=== PATIENT | male | born 1985 | race Caucasian/White ===

== ENCOUNTER 2020-07-24 10:17 | Inpatient (IN) ==
[2020-07-24] MEDS ORDERED: NS 0.9% 1000 ml BAG 1,000 ML IV ONE (10:32)
[2020-07-24 11:04] LABS: ABS Basophils 0.1 10^3/ul (0-0.2); ABS Lymphocytes 2.2 10^3/ul (1.0-4.8); ABS Monocytes 0.9 10^3/ul (0-0.8); Eosinophil % 0.2 %; Hematocrit 41 % (42-52); Lymphocyte % 16.8 %; Mean Corpuscular HGB Conc 34 g/dL (31-36); Mean Corpuscular Hemoglobin 29 pg (27-31); Mean Corpuscular Volume 85 fL (80-94); Mean Platelet Volume 7.9 fL (7.4-10.4); Platelet Count 275 10^3/uL (150-450); Red Blood Count 4.82 10^6 /uL (4.18-5.48); Red Cell Distribution Width 13 % (10-15); White Blood Count 13.2 10^3/uL (3.5-10.8)
[2020-07-24 11:27] LABS: Albumin 4.4 g/dL (3.2-5.2); Albumin/Globulin Ratio 1.4 (1-3); C Reactive Protein 121.62 mg/L (<8.01); Calcium 9.4 mg/dL (8.6-10.3); EGFR African American 121.1 (>60); EGFR Non-African American 100.1 (>60); Globulin 3.2 g/dL (2-4); Potassium 3.8 mmol/L (3.5-5.0); Total Bilirubin 0.8 mg/dL (0.2-1.0); Total Protein 7.6 g/dL (6.4-8.9)
[2020-07-24] MEDS ORDERED: cefTRIAXone 2 GM ADDV.VIAL 2 GM in NS 0.9% 100 ml BAG 100 ML IVPB ONE (11:43)
[2020-07-24] MEDS ORDERED: Vancomycin 1,500 MG in NS 0.9% 250 ml 250 ML IVPB ONE (12:00)
[2020-07-24] MEDS ORDERED: Vancomycin 1,000 MG VIAL IVPB SCH (12:00)
[2020-07-24] MEDS ORDERED: Tetan/Diph/Pertus SYR(Tdap) 0.5 ML SYR(BOOSTRIX) use SYR contains LATEX IM ONE (13:14)
[2020-07-24] MEDS ORDERED: Morphine 2 MG/ML SYRINGE IV PRN (13:20)
[2020-07-24] MEDS ORDERED: diPHENhydraMINE 25 mg TAB PO PRN (13:20)
[2020-07-24] MEDS ORDERED: Lactulose 30 ml UDC PO PRN (13:20)
[2020-07-24] MEDS ORDERED: Ondansetron ODT 4 mg TAB 4 MG TAB PO PRN (13:20)
[2020-07-24] MEDS ORDERED: diPHENhydraMINE IV 50 MG/ML 1 ml VIAL (BENADRYL) IV PRN (13:20)
[2020-07-24] MEDS ORDERED: Magnesium Hydroxide LIQ 30 ML UDC PO PRN (13:20)
[2020-07-24] MEDS ORDERED: Ondansetron 4 mg VIAL 2 MG/ML 2 ml VIAL IV PRN (13:20)
[2020-07-24] MEDS ORDERED: Gadoteridol (CONTRAST) 279.3 MG/ML 10 ML IV ONE (15:33)
[2020-07-24] MEDS ORDERED: Lidocaine 2% PF 5 ML VIAL ONE (18:00)
[2020-07-24] MEDS ORDERED: Propofol 10 MG/ML 20 ML BTL ONE ×2 (18:00→19:46)
[2020-07-24] MEDS ORDERED: Bupivacaine 0.5% SDV PF 30ML VIAL ONE (18:00)
[2020-07-24] MEDS ORDERED: Midazolam 5 mg/5 ml VIAL 1 mg/ml 5 ml VIAL (5 mg) ONE (18:00)
[2020-07-24] MEDS ORDERED: Lidocaine 1% MPF 5 ML VIAL ONE (18:06)
[2020-07-24] MEDS ORDERED: Clindamycin 900 MG/D5W BAG 900 MG/50 ML BAG IVPB ONE (18:09)
[2020-07-24] MEDS ORDERED: Dexamethasone IV 4 MG/ML VIAL 1 ml VIAL ONE (18:20)
[2020-07-24] MEDS ORDERED: fentaNYL 100 mcg/2 ml 50 MCG/ML VIAL ONE (18:55)
[2020-07-24] MEDS ORDERED: HYDROmorphone 1 MG/1 ML SYRINGE ONE (19:08)
[2020-07-24] MEDS ORDERED: HYDROmorphone 1 MG/1 ML SYRINGE IV PRN (19:40)
[2020-07-24] MEDS ORDERED: DiMENhydriNATE IV 50 mg/ml 1 ml VIAL IV PUSH PRN (19:40)
[2020-07-24] MEDS ORDERED: Naloxone 0.4 mg VIAL 0.4 mg/ml 1 ml VIAL IV PRN (19:40)
[2020-07-24] MEDS ORDERED: Ondansetron 4 mg VIAL 2 MG/ML 2 ml VIAL ONE (19:41)
[2020-07-24] MEDS: Magnesium Hydroxide LIQ 30 ML UDC PO SCH (23:20)
[2020-07-24] MEDS: Lactated Ringers 1000 ml BAG 1,000 ML IV SCH (23:26)
[2020-07-25 05:43] LABS: ABS Monocytes 0.4 10^3/ul (0-0.8); ABS Neutrophils 8.4 10^3/ul (1.5-7.7); Hematocrit 36 % (42-52); Hemoglobin 12.6 g/dL (14.0-18.0); Lymphocyte % 10.2 %; Mean Corpuscular HGB Conc 35 g/dL (31-36); Mean Corpuscular Hemoglobin 30 pg (27-31); Mean Corpuscular Volume 85 fL (80-94); Mean Platelet Volume 7.7 fL (7.4-10.4); Platelet Count 252 10^3/uL (150-450); Red Blood Count 4.27 10^6 /uL (4.18-5.48); Red Cell Distribution Width 13 % (10-15); White Blood Count 9.8 10^3/uL (3.5-10.8)
[2020-07-25 05:57] LABS: C Reactive Protein 154.48 mg/L (<8.01); Calcium 8.9 mg/dL (8.6-10.3); EGFR African American 164.3 (>60); EGFR Non-African American 135.8 (>60); Potassium 4.4 mmol/L (3.5-5.0)
[2020-07-25 07:09] LABS: Erythrocyte Sed Rate 73 mm/Hr (0-14)
[2020-07-25] MEDS: Magnesium Hydroxide LIQ 30 ML UDC PO SCH ×2 (07:51→20:55)
[2020-07-25] MEDS: Vitamin THERAPEUTIC TAB PO SCH (07:52)
[2020-07-25] MEDS: Heparin 5000 UNITS/ML 1 mL VIAL SUBCUT SCH ×2 (07:54→17:03)
[2020-07-25] MEDS: cefTRIAXone 2 GM ADDV.VIAL 2 GM in NS 0.9% 100 ml BAG 100 ML IV SCH (07:55)
[2020-07-25] MEDS: metroNIDAZOLE IV 500 MG/100ML 500 MG/100 ML BAG IVPB SCH ×2 (09:36→20:55)
[2020-07-25] MEDS: Lactated Ringers 1000 ml BAG 1,000 ML IV SCH ×2 (09:36→20:54)
[2020-07-26] MEDS: Heparin 5000 UNITS/ML 1 mL VIAL SUBCUT SCH ×4 (00:08→23:31)
[2020-07-26 06:12] LABS: ABS Basophils 0.1 10^3/ul (0-0.2); ABS Eosinophils 0.1 10^3/ul (0-0.6); ABS Lymphocytes 3.5 10^3/ul (1.0-4.8); ABS Monocytes 0.6 10^3/ul (0-0.8); ABS Neutrophils 8.6 10^3/ul (1.5-7.7); Eosinophil % 0.6 %; Hematocrit 40 % (42-52); Hemoglobin 13.5 g/dL (14.0-18.0); Lymphocyte % 26.9 %; Mean Corpuscular HGB Conc 34 g/dL (31-36); Mean Corpuscular Hemoglobin 29 pg (27-31); Mean Corpuscular Volume 86 fL (80-94); Mean Platelet Volume 7.9 fL (7.4-10.4); Platelet Count 329 10^3/uL (150-450); Red Blood Count 4.68 10^6 /uL (4.18-5.48); Red Cell Distribution Width 14 % (10-15); White Blood Count 12.9 10^3/uL (3.5-10.8)
[2020-07-26 06:39] LABS: C Reactive Protein 114.6 mg/L (<8.01); EGFR African American 135.5 (>60); Potassium 4.2 mmol/L (3.5-5.0)
[2020-07-26 07:30] LABS: Erythrocyte Sed Rate 64 mm/Hr (0-14)
[2020-07-26] MEDS: Magnesium Hydroxide LIQ 30 ML UDC PO SCH ×2 (07:46→20:53)
[2020-07-26] MEDS: cefTRIAXone 2 GM ADDV.VIAL 2 GM in NS 0.9% 100 ml BAG 100 ML IV SCH (08:31)
[2020-07-26] MEDS: Vitamin THERAPEUTIC TAB PO SCH (08:31)
[2020-07-26] MEDS: metroNIDAZOLE IV 500 MG/100ML 500 MG/100 ML BAG IVPB SCH ×2 (09:10→20:53)
[2020-07-27 05:37] LABS: ABS Eosinophils 0.2 10^3/ul (0-0.6); ABS Lymphocytes 2.6 10^3/ul (1.0-4.8); ABS Monocytes 0.5 10^3/ul (0-0.8); ABS Neutrophils 3.4 10^3/ul (1.5-7.7); Hematocrit 38 % (42-52); Hemoglobin 12.7 g/dL (14.0-18.0); Lymphocyte % 38.4 %; Mean Corpuscular HGB Conc 34 g/dL (31-36); Mean Corpuscular Hemoglobin 29 pg (27-31); Mean Corpuscular Volume 87 fL (80-94); Mean Platelet Volume 7.8 fL (7.4-10.4); Nucleated Red Blood Cells % 0.1; Platelet Count 313 10^3/uL (150-450); Red Blood Count 4.38 10^6 /uL (4.18-5.48); Red Cell Distribution Width 14 % (10-15); White Blood Count 6.7 10^3/uL (3.5-10.8)
[2020-07-27 05:59] LABS: C Reactive Protein 51.64 mg/L (<8.01); Calcium 9.1 mg/dL (8.6-10.3); EGFR African American 139.6 (>60); EGFR Non-African American 115.4 (>60); Potassium 4.2 mmol/L (3.5-5.0)
[2020-07-27 06:46] LABS: Erythrocyte Sed Rate 50 mm/Hr (0-14)
[2020-07-27] MEDS: Magnesium Hydroxide LIQ 30 ML UDC PO SCH ×2 (07:02→22:23)
[2020-07-27] MEDS: Heparin 5000 UNITS/ML 1 mL VIAL SUBCUT SCH ×3 (08:32→22:31)
[2020-07-27] MEDS: cefTRIAXone 2 GM ADDV.VIAL 2 GM in NS 0.9% 100 ml BAG 100 ML IV SCH (08:32)
[2020-07-27] MEDS: Vitamin THERAPEUTIC TAB PO SCH (08:32)
[2020-07-27] MEDS: metroNIDAZOLE IV 500 MG/100ML 500 MG/100 ML BAG IVPB SCH ×2 (09:40→22:25)
[2020-07-28 05:01] LABS: ABS Basophils 0.1 10^3/ul (0-0.2); ABS Eosinophils 0.2 10^3/ul (0-0.6); ABS Lymphocytes 2.4 10^3/ul (1.0-4.8); ABS Monocytes 0.5 10^3/ul (0-0.8); ABS Neutrophils 3.1 10^3/ul (1.5-7.7); Hematocrit 40 % (42-52); Hemoglobin 13.4 g/dL (14.0-18.0); Lymphocyte % 38.3 %; Mean Corpuscular HGB Conc 33 g/dL (31-36); Mean Corpuscular Hemoglobin 28 pg (27-31); Mean Corpuscular Volume 86 fL (80-94); Mean Platelet Volume 7.4 fL (7.4-10.4); Nucleated Red Blood Cells % 0.1; Platelet Count 363 10^3/uL (150-450); Red Blood Count 4.69 10^6 /uL (4.18-5.48); Red Cell Distribution Width 13 % (10-15); White Blood Count 6.3 10^3/uL (3.5-10.8)
[2020-07-28 05:19] LABS: C Reactive Protein 25.13 mg/L (<8.01); Calcium 9.3 mg/dL (8.6-10.3); EGFR African American 137.6 (>60); EGFR Non-African American 113.7 (>60); Potassium 4.4 mmol/L (3.5-5.0)
[2020-07-28 06:16] LABS: Erythrocyte Sed Rate 45 mm/Hr (0-14)
[2020-07-28] MEDS: Vitamin THERAPEUTIC TAB PO SCH (08:43)
[2020-07-28] MEDS: Heparin 5000 UNITS/ML 1 mL VIAL SUBCUT SCH ×3 (08:43→23:48)
[2020-07-28] MEDS: cefTRIAXone 2 GM ADDV.VIAL 2 GM in NS 0.9% 100 ml BAG 100 ML IV SCH (08:43)
[2020-07-28] MEDS: Magnesium Hydroxide LIQ 30 ML UDC PO SCH ×2 (08:44→21:06)
[2020-07-28] MEDS: metroNIDAZOLE IV 500 MG/100ML 500 MG/100 ML BAG IVPB SCH ×2 (09:36→21:04)
[2020-07-29 06:28] LABS: Hematocrit 40 % (42-52); Hemoglobin 13.6 g/dL (14.0-18.0); Mean Corpuscular HGB Conc 34 g/dL (31-36); Mean Corpuscular Hemoglobin 29 pg (27-31); Mean Corpuscular Volume 85 fL (80-94); Platelet Count 366 10^3/uL (150-450); Red Blood Count 4.65 10^6 /uL (4.18-5.48); Red Cell Distribution Width 13 % (10-15); White Blood Count 7.5 10^3/uL (3.5-10.8)
[2020-07-29 06:51] LABS: C Reactive Protein 14.66 mg/L (<8.01); Calcium 9.4 mg/dL (8.6-10.3); EGFR African American 146.3 (>60); EGFR Non-African American 120.9 (>60); Potassium 4.5 mmol/L (3.5-5.0)
[2020-07-29 07:29] VITALS: BP 133/80
[2020-07-29 07:31] LABS: Erythrocyte Sed Rate 34 mm/Hr (0-14)
[2020-07-29 07:40] LABS: ABS Basophils 0.1 10^3/ul (0-0.2); ABS Eosinophils 0.3 10^3/ul (0-0.6); ABS Lymphocytes 2.6 10^3/ul (1.0-4.8); ABS Monocytes 0.5 10^3/ul (0-0.8); ABS Neutrophils 4.1 10^3/ul (1.5-7.7); Eosinophil % 3.9 %; Lymphocyte % 34.3 %; Nucleated Red Blood Cells % 0.1
[2020-07-29] MEDS: Magnesium Hydroxide LIQ 30 ML UDC PO SCH (08:53)
[2020-07-29] MEDS: Heparin 5000 UNITS/ML 1 mL VIAL SUBCUT SCH (08:58)
[2020-07-29] MEDS: cefTRIAXone 2 GM ADDV.VIAL 2 GM in NS 0.9% 100 ml BAG 100 ML IV SCH (08:58)
[2020-07-29] MEDS: Vitamin THERAPEUTIC TAB PO SCH (08:59)
[2020-07-29] MEDS: metroNIDAZOLE IV 500 MG/100ML 500 MG/100 ML BAG IVPB SCH (09:31)
[2020-07-29 09:40] LABS: HIV 4th Generation Nonreactive (Nonreactive)
== END 2020-07-29 12:50 | disposition home or self-care (01) ==
LOC: ED 10:17 → SSU 13:20
PROVIDERS: ADMIT Internal Medicine; ATTEND Orthopaedic Surgery